=== PATIENT | female | born 1995 | race Caucasian/White ===

== ENCOUNTER 2024-04-26 18:36 | Emergency (ER) | payer BC, SELFPAY ==
[2024-04-26 18:39] VITALS: BP 134/76
[2024-04-26 19:03] LABS: % Basophils 0.3 % (0-2); % Eosinophils 2.4 % (0-6); % Immature Granulocytes 0.5 % (0-0.5); % Lymphocytes 18.3 % (20.5-51.1); % Monocytes 6.6 % (1.7-9.3); % Neutrophils 71.9 % (42.2-75.2); Absolute Eosinophils 0.3 10^3/uL (0-0.7); Absolute Immature Granulocytes 0.1 10^3/uL (0-0.05); Absolute Lymphocytes 2.2 10^3/uL (1.2-3.4); Absolute Monocytes 0.8 10^3/uL (0.1-0.6); Absolute Neutrophils 8.8 10^3/uL (1.4-6.5); Hematocrit 34.8 % (37.0-47.0); Hemoglobin 12.2 g/dL (12.0-16.0); Mean Corp Hgb Conc. 35.1 g/dL (33.0-37.0); Mean Corpuscular Hgb 30.1 pg (27.0-31.0); Mean Corpuscular Volume 85.9 fL (81.0-99.0); Mean Platelet Volume 8.4 fL (7.4-10.4); Nucleated Red Blood Cells % 0 %; Platelet Count 272 10^3/uL (130-400); Red Blood Cell Count 4.05 10^6/uL (4.20-5.40); Red Cell Dist. Width 13.3 % (11.5-14.5); Urine Albumin Negative (Neg - Trace); Urine Bilirubin Negative (Negative); Urine Character Clear (Clear); Urine Color Yellow; Urine Glucose Negative (Negative); Urine Ketone Negative (Negative); Urine Leukocyte Negative (Negative); Urine Nitrite Negative (Negative); Urine Occult Blood Negative (Negative); Urine Urobilinogen Negative (Neg - 1+); White Blood Cell Count 12.2 10^3/uL (4.8-10.8)
[2024-04-26 20:10] VITALS: BP 110/73
[2024-04-26 21:01] LABS: ALT (SGPT) 14 U/L (0-35); AST (SGOT) 23 U/L (14-36); Albumin 4.4 g/dl (3.5-5.0); Alkaline Phosphatase 56 U/L (38-126); Blood Urea Nitrogen 7 mg/dl (7-17); Calcium 9.3 mg/dl (8.4-10.2); Carbon Dioxide 21 mmol/L (22-30); Glucose 130 mg/dl (70-99); Total Bilirubin 0.3 mg/dl (0.2-1.3); eGFR > 60.00
--- NOTE | 2024-04-26 21:03 | ED.GENMED ---
History of Present Illness
<Rubina Early PA-C - Last Filed: 04/27/24 00:57>
General
Chief Complaint: Problems
Source: patient
Exam Limitations: none
Time Seen by Provider: 04/26/24 19:28
Nursing documentation reviewed up to this point in time: agreed with
History of Present Illness
History of Present Illness:
Patient is a 28-year-old female currently approximately 14 weeks gestation presenting to the emergency department with right lower quadrant abdominal pain. Patient states that over the past 2 days she has noticed increasing pressure in her
abdomen and then started to have pains that her abdomen. Today pain was more severe and located in the right lower quadrant. Patient became concerned and came to the emergency department for further evaluation. Patient denies any associated
fevers, chills, nausea, vomiting. Patient denies any urinary symptoms. Patient denies any vaginal bleeding or loss of fluids. Patient denies any chest pain or shortness of breath, lightheadedness. Appetite has been at patient's baseline.
Patient has had regular care with [facility]. She denies any complications during this . 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
Past History
<Rubina Early PA-C - Last Filed: 04/27/24 00:57>
Past History
ED Past Medical History: None
ED Past Surgical History: None
Social History
Tobacco: Non-smoker
Personal: Single
Living: with family
Review of Systems
<Rubina Early PA-C - Last Filed: 04/27/24 00:57>
Review of Systems
Allergies reviewed?: Yes
All Other Systems: ROS reviewed and negative except as documented in HPI and ROS
Phy Exam
<Rubina Early PA-C - Last Filed: 04/27/24 00:57>
Physical Exam
Physical Exam:
Vitals: Patient's vital signs are stable. Afebrile
General: Patient is well appearing, no acute distress
Skin: Warm and dry, no rashes or lesions
Head: Normocephalic, atraumatic
Eyes: Sclera nonicteric. EOMs intact. No nystagmus.
Throat: Protecting airway
Neck: Normal ROM, no cervical spine tenderness, no meningismus
Cardiac: Regular rate and rhythm, no murmurs.
Pulm: Normal respiratory effort, no wheezes, rales, rhonchi heard on exam.
Abdomen: Gravid abdomen. Very mild tenderness in right mid abdomen without rebound tenderness or guarding. No CVA tenderness
Extremities: No evidence of cyanosis or edema of bilateral lower extremities. Great distal pulses
Neuro: Grossly intact.
Psychiatric: Normal affect.
Course
<Rubina Early PA-C - Last Filed: 04/27/24 00:57>
Orders/Labs/Results
Orders:
Orders
04/26/24 18:54
Beta HCG Quantitative Urgent
Is this a screen?: No
Complete Blood Count/With Diff Urgent
Comprehensive Metabolic Panel Urgent
Comment: ADD ON
UA [Urinalysis] Urgent
Date Specimen was Collected: 04/26/24
Time Specimen was Collected: 18:43
04/26/24 20:23
US Abdomen - Appendix Only Urgent
Comment: 14 weeks
Reason For Exam: RLQ pain
US Limited Urgent
Comment: 14 weeks gestation
Reason For Exam: RLQ pain
04/26/24 20:42
Add On- LAB Urgent
Tests Added?: CMP
Abnormal Lab Results
04/26/24
18:54
WBC 12.2 H 10^3/uL
(4.8-10.8)
RBC 4.05 L 10^6/uL
(4.20-5.40)
Hct 34.8 L %
(37.0-47.0)
Abs Immat Gran (auto) 0.1 H 10^3/uL
(0-0.05)
Absolute Neuts (auto) 8.8 H 10^3/uL
(1.4-6.5)
Absolute Monos (auto) 0.8 H 10^3/uL
(0.1-0.6)
Lymphocytes % 18.3 L %
(20.5-51.1)
Carbon Dioxide 21 L mmol/L
(22-30)
Glucose 130 H mg/dl
(70-99)
04/26/24 18:54
04/26/24 20:25
Vital Signs
Initial and Last Documented VS:
Initial Vital Signs
Temp Pulse Resp BP Pulse Ox
98.2 F 71 16 134/76 100
04/26/24 18:39 04/26/24 18:39 04/26/24 18:39 04/26/24 18:39 04/26/24 18:39
Last Documented Vital Signs
Temp Pulse Resp BP Pulse Ox
98.2 F 73 17 110/73 100
04/26/24 18:39 04/26/24 20:10 04/26/24 20:10 04/26/24 20:10 04/26/24 20:10
Information
Weeks gestation: Weeks: (14.4)
Location: Location: (Intrauterine)
<Lui Galvez MD - Last Filed: 04/26/24 22:35>
Orders/Labs/Results
Orders:
Orders
04/26/24 18:54
Beta HCG Quantitative Urgent
Is this a screen?: No
Complete Blood Count/With Diff Urgent
Comprehensive Metabolic Panel Urgent
Comment: ADD ON
UA [Urinalysis] Urgent
Date Specimen was Collected: 04/26/24
Time Specimen was Collected: 18:43
04/26/24 20:23
US Abdomen - Appendix Only Urgent
Comment: 14 weeks
Reason For Exam: RLQ pain
US Limited Urgent
Comment: 14 weeks gestation
Reason For Exam: RLQ pain
04/26/24 20:42
Add On- LAB Urgent
Tests Added?: CMP
Abnormal Lab Results
04/26/24
18:54
WBC 12.2 H 10^3/uL
(4.8-10.8)
RBC 4.05 L 10^6/uL
(4.20-5.40)
Hct 34.8 L %
(37.0-47.0)
Abs Immat Gran (auto) 0.1 H 10^3/uL
(0-0.05)
Absolute Neuts (auto) 8.8 H 10^3/uL
(1.4-6.5)
Absolute Monos (auto) 0.8 H 10^3/uL
(0.1-0.6)
Lymphocytes % 18.3 L %
(20.5-51.1)
Carbon Dioxide 21 L mmol/L
(22-30)
Glucose 130 H mg/dl
(70-99)
04/26/24 18:54
04/26/24 20:25
Vital Signs
Initial and Last Documented VS:
Initial Vital Signs
Temp Pulse Resp BP Pulse Ox
98.2 F 71 16 134/76 100
04/26/24 18:39 04/26/24 18:39 04/26/24 18:39 04/26/24 18:39 04/26/24 18:39
Last Documented Vital Signs
Temp Pulse Resp BP Pulse Ox
98.2 F 73 17 110/73 100
04/26/24 18:39 04/26/24 20:10 04/26/24 20:10 04/26/24 20:10 04/26/24 20:10
<Rubina Early PA-C - Last Filed: 04/27/24 00:57>
MDM/Problems Addressed
Differential Diagnosis Includes:
Not limited to: Normal , round ligament discomfort, muscle strain, constipation, UTI, appendicitis, kidney stone
MDM/Problems Addressed:
28-year-old female G3, P0 at approximately 14 weeks gestation presenting with intermittent abdominal pains. Pain is diffuse throughout abdomen although some localization to right lower quadrant intermittently. Some localized discomfort to right
lower quadrant intermittently. No fever, chills, urinary symptoms. No vaginal bleeding or spotting. Vital stable, afebrile. Physical exam as above. Patient is extremely well-appearing, in no apparent distress. Patient is pleasant,
conversational, and nontoxic. Gravid abdomen, soft and in very mild tenderness noted in right mid abdomen. There is no rebound tenderness or guarding. No palpable masses. No CVA tenderness. No overlying rash, ecchymoses. Heart regular rate and
rhythm. Lungs clear bilaterally. No evidence of lower extremity edema. Differential broad at this time although low suspicion for acute surgical abdomen given patient is afebrile with benign abdominal exam. Differentials include possible round
ligament discomfort, muscle strain, constipation, UTI, etc. Will check basic labs, urine sample. Will check ultrasound, appendix ultrasound given location of pain�will likely be nondiagnostic. Patient denies any analgesia at this
time�she is very comfortable.
Chronic conditions affecting care:
Acute Exacerbation and/or Progression of Chronic Illness:
N/A
<Rubina Early PA-C - Last Filed: 04/27/24 00:57>
*Radiology
Radiology exam reviewed: radiology read reviewed
*Pulse Oximetry
Patient hypoxic: no
*EKG
Interpreted by ED Provider?: NA
*Monitor Technician Interpretation
Rate: Monitor Technician- N/A
*Critical Care Note
Total Time (30-74mins, 75-104mins- exclusive of procedures): Not Applicable
<Rubina Early PA-C - Last Filed: 04/27/24 00:57>
Update Note
Update Note:
Update: Labs reviewed. Very mild leukocytosis of 12.2�likely normal with . Otherwise no clinically significant abnormalities. Urine shows no evidence of blood to suggest kidney stone or any signs of infection. No bacteria noted.
Ultrasound reports reviewed. No evidence suggestive appendicitis, although appendix was not visualized therefore cannot be completely excluded. Pelvis ultrasound demonstrates single viable intrauterine fetus measuring appropriate for gestational
age. Does note possible low-lying placenta for which patient was made aware. Shared decision making with patient who is comfortable with discharge. Unknown exact cause of symptoms today�although do not suspect acute surgical abdomen including
appendicitis given patient's physical exam and vital signs. Shared decision making with patient who is comfortable with discharge. Patient will follow-up with [facility]OM[facility] closely and monitor for any signs of worsening/persistent infection. Return
precautions discussed at length. Patient and patient's family comfortable this plan. Patient seen by attending physician.
ED Attending Note
<Rubina Early PA-C - Last Filed: 04/27/24 00:57>
-
Portions of this chart may have been created with voice recognition software.� Occasional wrong word or��sound alike� substitutions may have occurred due to the inherent limitations of voice recognition software.
<Lui Galvez MD - Last Filed: 04/26/24 22:35>
ED Attending Note
Patient seen and examined by attending physician: Yes
I performed the substantive portion of visit, reviewed & personally made and approve the management plan that is documented in note by myself or LEV.: Yes
ED Attending Note:
Patient is a 28-year-old G3, P0 at 14 weeks presenting to the emergency department with abdominal pain. Patient states that for the past day she has been having pelvic pressure and then today developed sharp pain. It was all over but the
most severe happened in her right lower quadrant. She currently has no pain. No vaginal bleeding or spotting. She does believe she started to feel the baby move. No back pain. No dysuria urinary frequency or foul-smelling urine. She has been
having normal care. No chest pain difficulty breathing nausea vomiting or diarrhea.
GENERAL: in no acute distress
HEENT: normocephalic, extraocular movements intact, moist oral mucosa
NECK: normal inspection
RESPIRATORY: no respiratory distress, clear to auscultation bilaterally
CARDIOVASCULAR: regular rate and rhythm
ABDOMEN/: Gravid, soft, non-distended, non-tender to palpation, no rebound or guarding
EXTREMITIES: non-tender, no edema/swelling
NEUROLOGIC: awake and alert, moves all extremities
SKIN: warm
28-year-old 14 weeks presenting to the emergency department with intermittent abdominal pain with the most severe abdominal pain in the right lower quadrant that is now resolved. Vitals are unremarkable and exam is reassuring. Differential
is broad but could be UTI versus appendicitis versus ovarian pathology. Could be round ligament pain. Will check blood work urine and ultrasounds of both the pelvis and appendix. Anticipate discharge if everything is unremarkable.
Discharge Plan
Departure
Patient Disposition: Home (Routine Discharge)
Date of Disposition: 04/26/24
Time of Disposition: 22:36
Patient with high blood pressure during this ER visit?: No
Condition: Good
Covid-19: Not Applicable
Discharge Problem:
Abdominal pain
Instructions: Abdominal Pain, Adult ED
Prescriptions:
No Action
hydroxyzine pamoate [Vistaril] 25 MG capsule
25 mg PO Q6HPRN PRN (Reason: anxiety) Qty: 20 0RF
sulfamethoxazole-trimethoprim 1 TABLET tablet
1 tab PO BID Qty: 14 0RF
phenazopyridine 100 MG tablet
100 mg PO TIDPRN PRN (Reason: painful urination) Qty: 3 0RF
Referrals:
Palomo Randle CRNP [Family Provider] -
Activity Restrictions/Additional Instructions:
RETURN TO THE EMERGENCY DEPARTMENT WITH ANY FEVERS, CHILLS, WORSENING/PERSISTENT ABDOMINAL PAIN, LOSS OF APPETITE, INTRACTABLE NAUSEA/VOMITING, VAGINAL BLEEDING, OR ANY OTHER CONCERNS
-Stay well-hydrated. You can take Tylenol as needed for discomfort.
-Follow-up with your PHLEBOTOMIST PRN for further evaluation/management and to ensure symptoms are improving. As discussed your ultrasound did show a slightly low-lying placenta which should be followed up through later stages of via ultrasound.
Monitor your symptoms closely and return to the emergency department any acute worsening/new symptoms
Interventions
Interventions:
*Risk Screen - Suicide Last Done: 04/26/24 18:39
*General Assessment Last Done: 04/26/24 20:11
ED- Fall Risk Assessment Last Done: 04/26/24 20:11
*Nursing Disposition Last Done: 04/26/24 22:54
ED-Female Genitourinary Assessment Last Done: 04/26/24 20:11
Discharge Date and Time
Discharge Date/Time: 04/26/24 22:55
Print Language: CAMBODIAN
[2024-04-26 21:04] LABS: Chloride 102 mmol/L (98-107); Potassium 3.6 mmol/L (3.5-5.1); Sodium 136 mmol/L (135-145)
== END 2024-04-26 22:55 | disposition home or self-care (01) ==
LOC: EMR 18:36
PROVIDERS: Emergency Medicine; EMERGENCY PHYSICIAN Student in an Organized Health Care Education/Training Program; FAMILY PHYSICIAN Nurse Practitioner Family
DX: O26.892 Other specified pregnancy related conditions, second trimester (principal); Z3A.14 14 weeks gestation of pregnancy; R10.31 Right lower quadrant pain; R10.2 Pelvic and perineal pain; K21.9 Gastro-esophageal reflux disease without esophagitis; Z88.1 Allergy status to other antibiotic agents
CPT/HCPCS: 99284; 76705; 76815; 80053; 81003; 84702; 85025

== ENCOUNTER 2025-05-09 02:17 | Emergency (ER) | payer BC, SELFPAY ==
[2025-05-09 02:26] VITALS: BP 114/66
[2025-05-09 02:48] LABS: Urine Character Cloudy (Clear)
[2025-05-09 03:23] LABS: Urine Red Blood Cell >100 /HPF (0-2); Urine Squamous Cell 0-2 /LPF (Few)
[2025-05-09 03:24] LABS: Urine White Cell 80-90 /HPF (0-5)
[2025-05-09 04:23] VITALS: BP 111/79; BMI 24.5
--- NOTE | 2025-05-09 05:47 | ED.GENMED ---
History of Present Illness
General
Chief Complaint: Urinary Symptoms
Source: patient
Time Seen by Provider: 05/09/25 04:55
History of Present Illness
History of Present Illness:
Note:
CHIEF COMPLAINT(S)
Urinary tract infection symptoms, including dysuria and hematuria.
HISTORY OF PRESENT ILLNESS
The patient is a 29-year-old female who reports symptoms suggestive of a urinary tract infection (UTI), including a significant onset of pain and noticeable hematuria around midnight prior to the visit. She noted that the bleeding has ceased,
although pain persists, particularly towards the end of micturition. The patient mentioned a similar episode in the past that escalated quickly. No previous history of kidney stones is noted. The patient underwent a section in October and
suspects this episode is a urinary tract infection that is potentially ascending towards the kidneys. She is currently and expresses concerns about medication safety for this reason.
PAST MEDICAL AND SURGICAL HISTORY
The patient underwent a section in October.
CHRONIC MEDICAL CONDITIONS SIGNIFICANTLY AFFECTING CARE
Hypothyroidism, managed with levothyroxine 50 micrograms daily.
SOCIAL DETERMINANTS AFFECTING HEALTH
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
MEDICATIONS
Levothyroxine, 50 micrograms daily.
PHYSICAL EXAM
General: Alert, no acute distress.
Skin: Warm, dry.
Head: Normocephalic, atraumatic.
Neck: Supple, trachea midline.
Eye Ears, nose, mouth and throat: Oral mucosa moist.
Cardiovascular: Normal peripheral perfusion, No edema.
Respiratory: Respirations are non-labored.
Gastrointestinal: Abdomen nondistended.
Back: No costovertebral angle tenderness noted.
Musculoskeletal: Normal range of motion, normal strength.
Neurological: Alert and oriented to person, place, time, and situation. No focal neurological deficit observed.
Psychiatric: Cooperative, appropriate mood & affect.
PROBLEM LIST
Acute Problems:
- Urinary tract infection with hematuria and dysuria
Chronic Problems:
- Hypothyroidism
PLAN
The patient will be started on cephalexin for the treatment of the suspected ascending urinary tract infection due to its potential impact on the kidneys. Medications are considered safe for , but a check will be done to ensure there is
no risk. A first dose of medication will be administered, and the remaining doses will be sent to the pharmacy. If symptoms do not improve and persist, a CT scan may be considered to rule out other complications such as kidney infections.
DIFFERENTIAL DIAGNOSIS
The Differential Diagnosis includes, in no particular order and is not limited to:
- Urinary tract infection
- Pyelonephritis
- Kidney stones
- Hemorrhagic cystitis
- Bladder stones
- Interstitial cystitis
- Urethral injury
- Glomerulonephritis
- Overactive bladder
- Urinary tuberculosis
Disposition:
SUMMARY OF ENCOUNTER
The patient, a 21-year-old female with a history of prior urinary tract infections (UTIs), presented with symptoms consistent with a UTI, including burning on urination and increased frequency. She denied having fever, chills, nausea, or vomiting.
After evaluation in the emergency department, the patient was diagnosed with a urinary tract infection and managed accordingly.
DISPOSITION
Discharge
ASSESSMENT
The patients symptoms and history are consistent with a urinary tract infection.
PLAN
The patient will be discharged with instructions for managing a urinary tract infection. The plan likely includes antibiotic therapy, increased fluid intake, and symptomatic treatment as needed.
PATIENT EDUCATION AND COUNSELING
The patient was educated on the signs and symptoms of urinary tract infections, the importance of completing the prescribed antibiotic course, and the need to maintain adequate hydration. She was also advised on proper hygiene practices to prevent
future infections.
FOLLOW-UP INSTRUCTIONS
The patient was advised to follow up with her primary care physician or return to the emergency department if symptoms worsen or if she experiences new symptoms such as fever, chills, or abdominal pain.
MEDICATION RECONCILIATION
Prescription medication for a urinary tract infection was provided, but specifics regarding the medication name or dosage are unclear.
MEDICAL DECISION MAKING
- Number and Complexity of Problems Addressed: Chronic conditions affecting care include prior UTIs.
- Data:
Category 1: No additional testing or imaging was indicated based on the presented symptoms.
Category 2: None available.
Category 3: Not applicable.
-Risk: Prescription medication was prescribed. Care was affected by the history of recurrent UTIs.
DIAGNOSIS
Urinary Tract Infection (N39.0)
Past History
Past History
ED Past Medical History: None
ED Past Surgical History: None
Social History
Tobacco: Non-smoker
Personal: Single
Living: with family
Phy Exam
Physical Exam
Physical Exam:
.
Course
Orders/Labs/Results
Orders:
Orders
05/09/25 02:38
Urinalysis Reflex To Culture Urgent
Date Specimen was Collected: 05/09/25
Time Specimen was Collected: 02:32
Urine Microscopic Reflex Cult Urgent
Urine Culture Urgent
LUIS ARMANDO Source: U
Specimen Description:
Date Specimen was Collected: 05/09/25
Time Specimen was Collected: 02:32
05/09/25 05:45
Cephalexin Monohydrate [Keflex] 500 mg PO NOW STA
Abnormal Lab Results
05/09/25
02:38
Ur Occult Blood Reflex 4+ A
(Negative)
Urine Nitrite (Reflex) Positive A
(Negative)
Leukocyte Esterase Rfl 3+ A
(Negative)
Urine RBC >100 A /HPF
(0-2)
Urine WBC (Reflex) 80-90 A /HPF
(0-5)
Urine Bacteria (Reflex) Few A
(Negative)
Urine Albumin (Reflex) 3+ A
(Neg - Trace)
Vital Signs
Initial and Last Documented VS:
Initial Vital Signs
Temp Pulse Resp BP Pulse Ox
98.6 F 91 18 114/66 98
05/09/25 02:26 05/09/25 02:26 05/09/25 02:26 05/09/25 02:26 05/09/25 02:26
Last Documented Vital Signs
Temp Pulse Resp BP Pulse Ox
97.8 F 91 16 111/79 98
05/09/25 04:23 05/09/25 04:23 05/09/25 04:23 05/09/25 04:23 05/09/25 04:23
*Pulse Oximetry
SaO2: 98
Oxygen Mode of Delivery: Room air
Patient hypoxic: no
*Critical Care Note
Total Time (30-74mins, 75-104mins- exclusive of procedures): Not Applicable
ED Attending Note
-
Portions of this chart may have been created with voice recognition software.� Occasional wrong word or��sound alike� substitutions may have occurred due to the inherent limitations of voice recognition software.
Discharge Plan
Departure
Patient Disposition: Home (Routine Discharge)
Date of Disposition: 05/09/25
Time of Disposition: 05:48
Patient with high blood pressure during this ER visit?: Yes
Condition: Fair
Discharge Problem:
UTI (urinary tract infection)
Instructions: Urinary Tract Infection, Adult (DC), Blood in the Urine (Hematuria), Adult (DC)
Prescriptions:
New
cephalexin 500 mg capsule
500 mg PO BID 10 Days Qty: 20 0RF
No Action
hydroxyzine pamoate [Vistaril] 25 MG capsule
25 mg PO Q6HPRN PRN (Reason: anxiety) Qty: 20 0RF
sulfamethoxazole-trimethoprim 1 TABLET tablet
1 tab PO BID Qty: 14 0RF
phenazopyridine 100 MG tablet
100 mg PO TIDPRN PRN (Reason: painful urination) Qty: 3 0RF
Referrals:
Palomo Randle CRNP [Family Provider, Family Practice]
Activity Restrictions/Additional Instructions:
Thank You for choosing [facility].
It was a pleasure meeting you and taking part in your care. We hope for your continued healing and wellness.
Please read discharge instructions in their entirety. However, they are for general education and may not describe your exact diagnosis at discharge. Information on your ER visit and medical conditions were discussed with you along with appropriate
follow up information...
If indicated, please take your medications as instructed and indicated on discharge paperwork.
Please schedule a follow up appointment as directed. Call to schedule an appointment
Please return to the emergency department with ANY change in, persisting, or worsening of symptoms. If any of your symptoms do not improve, or persist, or become more severe within 6-12 hours, please return to the emergency department for further
care.
Please return to the emergency department if you develop a headache, neck pain/stiffness, fever greater than 100.4F, chest pain, shortness of breath, persistent nausea, vomiting, slurred speech, difficulty walking, numbness/tingling, weakness, signs
of infection or any other symptoms that are worrisome to you.
If you have any questions or concerns please do not hesitate to call the Hospital at .
Interventions
Interventions:
*Risk Screen - Suicide Last Done: 05/09/25 02:29
*General Assessment Last Done: 05/09/25 02:29
*Neglect/Abuse Screening Last Done: 05/09/25 02:29
*ED- Fall Risk Assessment Last Done: 05/09/25 04:25
*ED COVID-19 Vaccine History Last Done: 05/09/25 02:29
*ED Influenza Vaccine History Last Done: 05/09/25 02:29
ED-Female Genitourinary Assessment Last Done: 05/09/25 04:24
Discharge Date and Time
Print Language: PUERTO RICAN
[2025-05-09] MEDS: KEFLEX 500 MG PO (06:00)
== END 2025-05-09 06:02 | disposition home or self-care (01) ==
LOC: EMR 02:17
PROVIDERS: EMERGENCY PHYSICIAN Student in an Organized Health Care Education/Training Program; FAMILY PHYSICIAN Nurse Practitioner Family
DX: N39.0 Urinary tract infection, site not specified (principal); R03.0 Elevated blood-pressure reading, without diagnosis of hypertension; E03.9 Hypothyroidism, unspecified; Z87.440 Personal history of urinary (tract) infections
CPT/HCPCS: 99283; 81003; 81015; 87077; 87086